=== PATIENT | female | born 1985 | race Caucasian/White ===

== ENCOUNTER 2017-04-13 05:45 | Emergency (ER) | payer BC ==
[~2017-04-13] VITALS: Ht 157.5 cm; Wt 117.3 kg
[2017-04-13 06:55] LABS: HEMATOCRIT 40.4 % (36.0-46.0); HEMOGLOBIN 13.5 G/DL (11.9-15.5); MCHC 33.4 G/DL (30.0-36.0); MCV 89.8 FL (83-99); PLATELET COUNT 268 K/uL (156-360); RBC DIS.WIDTH-CV 13.4 % (11.8-14.6); RBC DIS.WIDTH-SD 43.8 % (39-53); WHITE BLOOD COUNT 9.8 K/uL (4.1-10.2)
[2017-04-13 07:22] LABS: ALBUMIN 4.4 G/DL (3.2-4.8); CHLORIDE 106 MEQ/L (99-109); POTASSIUM 4.1 MEQ/L (3.7-5.4); SODIUM 141 MEQ/L (136-147); TOTAL BILIRUBIN 0.3 MG/DL (0.0-1.0)
[2017-04-13 07:32] LABS: QUANTITATIVE HCG < 4.0 MIU/ML
[2017-04-13 07:46] LABS: ALKALINE PHOSPHATASE 42 IU/L (3-129); ALT (GPT) 9 IU/L (3-49); AST (GOT) 17 IU/L (2-34); CREATININE 0.8 MG/DL (0.6-1.3); GFR ESTIMATE (CALCULATED) > 59 mL/min/; GLUCOSE 126 mg/dL (70-99); TOTAL PROTEIN 7.1 G/DL (6.4-8.3); UREA NITROGEN (BUN) 11 mg/dL (9-23)
[2017-04-13 07:47] LABS: SERUM ETHYL ALCOHOL < 10 mg/dL
[2017-04-13 08:05] LABS: AMPHETAMINE NEGATIVE (500 ng/mL); BARBITURATES NEGATIVE (200 ng/mL); BENZODIAZEPINES NEGATIVE (150 ng/mL); BUPRENORPHINE NEGATIVE (10 ng/mL); COCAINE NEGATIVE (150 ng/mL); METHADONE NEGATIVE (200 ng/mL); METHAMPHETAMINE NEGATIVE (500 ng/mL); OPIATES (MORPHINE) NEGATIVE (100 ng/mL); OXYCODONE NEGATIVE (100 ng/mL); PHENCYCLIDINE NEGATIVE (25 ng/mL); PROPOXYPHENE NEGATIVE (300 ng/mL); THC CANNABINOIDS NEGATIVE (50 ng/mL); TRICYCLIC ANTIDEPRESSANTS NEGATIVE (300 ng/mL)
[2017-04-13 08:12] LABS: APPEARANCE SL.HAZY ((CLEAR)); BILIRUBIN NEGATIVE; BLOOD LARGE; COLOR YELLOW ((YELLOW)); GLUCOSE (STRIP) NEGATIVE; KETONES NEGATIVE; LEUKOCYTES TRACE; NITRITE NEGATIVE; PROTEIN (STRIP) 30; SPECIFIC GRAVITY 1.023 (1.000-1.030)
[2017-04-13 08:16] LABS: BACTERIA RARE /HPF; EPITHELIAL CELLS 1+ /HPF; MUCUS TRACE /LPF; RED BLOOD CELLS TNTC /HPF (0-5); UCUL ADDED? YES; WHITE BLOOD CELLS 15-20 /HPF (0-5)
[2017-04-13] MEDS ORDERED: TRAZODONE HCL50 MG PO (08:51)
[2017-04-13] MEDS ORDERED: CIPRO500 MG PO (08:51)
[2017-04-13 09:08] VITALS: BP 129/65
== END 2017-04-13 09:09 | disposition home or self-care (01) ==
LOC: EME 05:45
PROVIDERS: Emergency Medicine
DX: F41.9 Anxiety disorder, unspecified (principal); F31.9 Bipolar disorder, unspecified; N39.0 Urinary tract infection, site not specified; F43.20 Adjustment disorder, unspecified; G47.00 Insomnia, unspecified; R42 Dizziness and giddiness; R06.02 Shortness of breath
CPT/HCPCS: 80053; 81003; 84702; 85027; 87077; 87086; 87186; 90839; 99281; 99283; G0480